=== PATIENT | male | born 1975 | race African-American/Black ===

== ENCOUNTER → 2017-09-14 | Outpatient (CLI) | payer OTHER | END | disposition home or self-care (01) | LOC: KCIC MRI 10:22 | DX: M25.78 Osteophyte, vertebrae (principal); M25.511 Pain in right shoulder | CPT/HCPCS: 72141 ==

== ENCOUNTER → 2018-07-02 | Outpatient (CLI) | payer MEDICAID, OTHER ==
--- NOTE | 2018-07-02 17:44 | RAD ---
Ultrasound venous Doppler INDICATION:Bilateral calf swelling TECHNIQUE: Grayscale, color Doppler and spectral waveform ultrasound images of the bilateral lower extremities deep veins obtained. COMPARISON: None FINDINGS: The interrogated deep veins are compressible and demonstrate evidence of blood flow with normal respiratory variation and response to augmentation. IMPRESSION: No sonographic evidence of acute DVT of the bilateral lower extremity deep veins. Electronically signed by: Stephen Gutierrez DO (07/02/2018 5:39 PM) [facility]
== END | disposition home or self-care (01) ==
LOC: US 16:06
PROVIDERS: ATTEND Physician Assistant Surgical
DX: M79.89 Other specified soft tissue disorders (principal)
CPT/HCPCS: 93970

== ENCOUNTER 2019-05-16 12:06 | Emergency (ER) | payer OTHER ==
[~2019-05-16] VITALS: Ht 188 cm; Wt 99.8 kg
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
--- NOTE | 2019-05-16 13:51 | RAD ---
Examination: WRIST 3V LEFT History: Left wrist pain Comparison/Correlation: None Findings: Infiltrate at the left wrist were obtained. Joint spaces are unremarkable. No acute fracture or bone destruction. Soft tissues are unremarkable. Impression: No suspicious process. Consider further evaluation with interval follow-up x-ray exam or MRI if occult process is a persistent concern. Electronically signed by: Robert Johnson MD (05/16/2019 1:49 PM) [facility]
[2019-05-16 14:04] VITALS: BP 145/82
[2019-05-16] MEDS ORDERED: ORPH100T PO (14:15)
== END 2019-05-16 14:15 | disposition home or self-care (01) ==
LOC: ER 12:06
DX: M25.532 Pain in left wrist (principal); M54.5 Low back pain; M25.572 Pain in left ankle and joints of left foot; V43.12XA Car passenger injured in collision with other type car in nontraffic accident, initial encounter; Y93.89 Activity, other specified; Y92.481 Parking lot as the place of occurrence of the external cause; Y99.8 Other external cause status
CPT/HCPCS: 73110; 99284

== ENCOUNTER 2021-02-09 21:42 | Emergency (ER) | payer OTHER ==
[~2021-02-09 21:42] MED LIST: ORPH100T PO
== END 2021-02-09 23:15 | disposition left against medical advice (07) ==
LOC: ER 21:42
DX: S99.921A Unspecified injury of right foot, initial encounter (principal); Z53.21 Procedure and treatment not carried out due to patient leaving prior to being seen by health care provider; X58.XXXA Exposure to other specified factors, initial encounter; Y93.89 Activity, other specified; Y92.89 Other specified places as the place of occurrence of the external cause; Y99.8 Other external cause status